=== PATIENT | female | born 1935 | race Caucasian/White ===

== ENCOUNTER 2016-06-10 18:36 | Emergency (ER) | payer MEDICARE, BC ==
--- NOTE | ~2016-06-10 | CT71 ---
[facility] A Service of [facility] RADIOLOGY TEXT RESULTS PATIENT: ZACKERY ESCALERA LOCATION: [facility] : 33 UNIT #: [id number] AGE: [address]: Yves Painting MD SEX: F ORDER DR: [id number] [facility] [address] [place], [place] [address] [id number] E MR#: [id number] Acc #: [id number] NAME: ZACKERY ESCALERA : 1935 SEX: F STUDY DATE/TIME: 06/10/2016 18:48 UNIT: [facility] ROOM: STUDY DESCRIPTION: CT Head Wo Contrast Attending Physician: vYes Painting M.D. Ordering Physician: Ed Gerald Patricia M.D. Primary Care Physician: Deandre Machado M.D. MEDICAL IMAGING REPORT This report is preliminary unless electronic signature is present EXAM CT of the head without contrast performed on 06/10/2016. HISTORY 80-year-old female with fall today but no loss of consciousness. Patient had dizziness. Laceration to the head. TECHNIQUE This CT exam was performed with one or more of the following radiation dose reduction techniques: Automatic exposure control, adjustment of mA and/or kV according to patient size, and iterative reconstruction. FINDINGS Visualized paranasal sinuses and mastoid air cells are clear. No middle ear opacity is present bilaterally. The osseous skull is intact. Soft tissue laceration seen over the right forehead. No radiopaque foreign body identified in the soft tissues. No midline shift, mass effect or acute hemorrhage is seen. Chronic ischemic changes and mild atrophy present. This is felt to be age appropriate. IMPRESSION No acute intracranial abnormality. Soft tissue laceration seen over the right forehead but no radiopaque foreign body. No underlying skull fracture. Dictated by... Marcio Frias M.D. THIS IS AN ELECTRONICALLY VERIFIED REPORT Marcio Frias M.D. at 06/11/2016 7:05 PM RP/radha [facility] A Service of [facility] RADIOLOGY TEXT RESULTS PATIENT: ZACKERY ESCALERA [facility] #: [id number] : 33 UNIT #: [id number] AGE: [address]: Yves Painting MD SEX: F ORDER DR: TD: 06/10/2016 23:34 JOB #: [id number] MEDICAL IMAGING REPORT COPY
--- NOTE | ~2016-06-10 | EKG ---
PATIENT: ZACKERY ESCALERA UNIT #: [id number] Ventricular Rate: 93 BPM Atrial Rate: 93 BPM P-R Interval: 146 ms QRS Duration: 84 ms Q-T Interval: 364 ms QTC Calculation(Bezet): 452 ms P [place]: 70 degrees Calculated R [place]: 55 degrees Calculated T [place]: 40 degrees Diagnosis Line: Sinus rhythm with sinus arrhythmia with occasional Diagnosis Line: Premature ventricular complexes Diagnosis Line: Low voltage QRS Diagnosis Line: Otherwise normal ECG Diagnosis Line: When compared with ECG of 01-SEP-2012 19:36, Diagnosis Line: Premature ventricular complexes are now Present Diagnosis Line: Confirmed by JAQUELINE ROBERT MD ([id number]) on 06/11/2016 Diagnosis Line: 6:23:11 PM INTERPRETING MD: YESICA OLIVAS
[2016-06-10 20:06] LABS: BASOPHIL% 0.4 % (0-2.5); EOSINOPHIL# 0.1 X10e3 (0-0.7); EOSINOPHIL% 0.9 % (0.0-7.0); HEMATOCRIT 35.1 % (35.0-45.0); HEMOGLOBIN 11.8 gm/dL (12.0-16.0); LYMPHOCYTE# 1.2 X10e3 (1.0-3.5); LYMPHOCYTE% 11.5 % (17.0-45.0); MEAN CORPUSCULAR HEMOGLOBIN 29.9 PG (28-34); MEAN CORPUSCULAR HGB CONC 33.6 g/dL (30-36); MEAN PLATELET VOLUME 9.5 FL (6.5-11.5); MONOCYTE# 0.7 X10e3 (0-1.0); MONOCYTE% 6.7 % (3.0-12.0); NEUTROPHIL# 8.3 X10e3 (1.5-7.1); NEUTROPHIL% 80.5 % (40-75); PLATELET COUNT 285 X10e3 (140-420); RED BLOOD COUNT 3.95 X10e (3.90-5.30); RED CELL DISTRIBUTION WIDTH 14.8 % (11.0-15.5); WHITE BLOOD COUNT 10.3 X10e3 (4.0-10.5)
[2016-06-10 20:07] LABS: DIFF IND NO
[2016-06-10 20:22] LABS: PARTIAL THROMBOPLASTIN TIME 27.4 SECONDS (23.5-31.3); PROTHROMBIN TIME (PATIENT) 10.1 SECONDS (9.6-11.5)
[2016-06-10 20:24] LABS: ALKALINE PHOSPHATASE 68 U/L (32-92); ALT (SGPT) 17 U/L (10-40); AST (SGOT) 23 U/L (10-42); BILIRUBIN,TOTAL 0.6 mg/dL (0.2-2.0); BLOOD UREA NITROGEN 19 mg/dL (9-23); BUN/CREATININE RATIO 23.75; CALCIUM SERUM 9.1 mg/dL (8.4-10.2); CARBON DIOXIDE 30 mmol/L (22-31); CHLORIDE 101 mmol/L (100-111); CREATININE SERUM 0.8 mg/dL (0.6-1.4); GLOM FILT RATE Estimated ABOVE60 mL/min (>60); GLUCOSE FASTING 98 mg/dL (70-110); PROTEIN TOTAL SERUM 6.6 g/dL (6.0-8.3); SODIUM 138 mmol/L (135-145)
[2016-06-10 20:25] LABS: URINE SOURCE CLEAN CATCH
[2016-06-10 20:29] LABS: URINE APPEARANCE CLEAR; URINE BILIRUBIN NEG (NEG); URINE BLOOD NEG (NEG); URINE COLOR YELLOW; URINE GLUCOSE NEG (NEG); URINE KETONE NEG (NEG); URINE LEUKOCYTE ESTERASE NEG (NEG); URINE NITRATE NEG (NEG); URINE PROTEIN NEG (NEG); URINE SPECIFIC GRAVITY 1.014 (1.003-1.035); URINE UROBILINOGEN 0.2 MG/DL (NEG)
[2016-06-10 20:31] LABS: BILIRUBIN, DIRECT <0.1 mg/dL (0.0-0.2); BILIRUBIN,INDIRECT 0.5 mg/dL (0.0-0.9)
[2016-06-10 20:35] LABS: CULTURE INDICATED? NO
== END 2016-06-10 22:48 | disposition home or self-care (01) ==
LOC: CED 18:36
PROVIDERS: Emergency Medicine
DX: S01.81XA Laceration without foreign body of other part of head, initial encounter (principal); S61.511A Laceration without foreign body of right wrist, initial encounter; S61.210A Laceration without foreign body of right index finger without damage to nail, initial encounter; Z23 Encounter for immunization; W10.9XXA Fall (on) (from) unspecified stairs and steps, initial encounter; Y93.89 Activity, other specified; Y92.9 Unspecified place or not applicable
CPT/HCPCS: 12015; 70450; 80048; 80076; 81003; 85025; 85610; 85730; 90471; 90715; 93005; 99284

== ENCOUNTER → 2016-11-10 | Outpatient (CLI) | payer MEDICARE, BC ==
--- NOTE | ~2016-11-10 | CR212 ---
[facility]. [facility] A Service of [facility] & [facility] RADIOLOGY TEXT RESULTS PATIENT: ZACKERY ESCALERA LOCATION: [facility] : 33 UNIT #: [id number] AGE: [address]: Seda Machado MD SEX: F ORDER DR: [id number] [address] [address] [id number] O MR#: [id number] Acc #: [id number] NAME: ZACKERY ESCALERA : 1935 SEX: F STUDY DATE/TIME: 11/10/2016 11:09 UNIT: [facility] ROOM: STUDY DESCRIPTION: CR Ribs Unilateral 2 View Lt Attending Physician: Seda Machado M.D. Referring Physician: Seda Machado M.D. Ordering Physician: Seda Machado M.D. Primary Care Physician: Deandre Machado M.D. MEDICAL IMAGING REPORT This report is preliminary unless electronic signature is present. EXAM Left ribs HISTORY Fell over a week ago. Complains of mid chest and sternal and left-sided pain. FINDINGS Detailed views of the left ribs demonstrates no fracture deformity. No lytic or blastic lesions. The underlying parenchyma appears normal. Soft tissues unremarkable. IMPRESSION Negative left ribs. Dictated by... Farzad Aguirre M.D. THIS IS AN ELECTRONICALLY VERIFIED REPORT Farzad Aguirre M.D. at 11/10/2016 5:13 PM JOSEPHINE/raeann TD: 11/10/2016 15:11 JOB #: [id number] MEDICAL IMAGING REPORT Page 1 of 1
== END | disposition home or self-care (01) ==
LOC: SRAD 10:57
DX: R07.81 Pleurodynia (principal)
CPT/HCPCS: 71100

== ENCOUNTER → 2016-12-12 | Outpatient (CLI) | payer MEDICARE, BC ==
--- NOTE | ~2016-12-12 | CR63 ---
[facility]. [facility] A Service of [facility] & [facility] RADIOLOGY TEXT RESULTS PATIENT: ZACKERY ESCALERA LOCATION: [facility] : 33 UNIT #: [id number] AGE: [address]: Deandre Machado MD SEX: F ORDER DR: [id number] [place] [id number] O MR#: [id number] Acc #: [id number] NAME: ZACKERY ESCALERA : 1935 SEX: F STUDY DATE/TIME: 12/12/2016 8:11 UNIT: [facility] ROOM: STUDY DESCRIPTION: CR Chest 2 View Attending Physician: Deandre Machado M.D. Ordering Physician: Deandre Machado M.D. Primary Care Physician: Deandre Machado M.D. MEDICAL IMAGING REPORT This report is preliminary unless electronic signature is present. EXAM Chest PA and lateral 12/12/2016 HISTORY Chest pain for 4 weeks. Benign essential hypertension. History of colon carcinoma. FINDINGS The cardiac and mediastinal structures are stable compared with 06/03/2016. The lungs are hyperinflated and there are prominent chronic interstitial markings in the [id number] lungs bilaterally. I suspect COPD. No airspace consolidation is seen. There are no pleural effusions. IMPRESSION Probable COPD. No active pulmonary disease. Dictated by... Rodney Meadows M.D. THIS IS AN ELECTRONICALLY VERIFIED REPORT Rodney Meadows M.D. at 12/13/2016 6:32 AM MIKI/rakesh TD: 12/12/2016 22:11 JOB #: [id number] MEDICAL IMAGING REPORT Page 1 of 1
== END | disposition home or self-care (01) ==
LOC: SRAD 08:05
DX: R07.9 Chest pain, unspecified (principal)
CPT/HCPCS: 71020